=== PATIENT | female | born 1985 | race Caucasian/White ===

== ENCOUNTER 2017-01-22 11:28 | Observation (INO) | payer MEDICAID, OTHER ==
[~2017-01-22] VITALS: Ht 167.6 cm; Wt 61.0 kg
[~2017-01-22 11:28] MED LIST: ARIP2TAB2 PO; LORA2TAB; QUET100T4 PO; RISP1TAB45 HOMEINJ; RISP2TAB35 PO; TRIHEXYPHENIDYL; [UNRECOGNIZED DRUG - REMARK]
[2017-01-22] MEDS ORDERED: LORazepam 1MG TABLET ONE ×2 (11:47→14:26)
[2017-01-22 11:58] LABS: DAU SCREEN DISCLAIMER
[2017-01-22] MEDS ORDERED: LORazepam 1MG TABLET PO ONE (12:00)
[2017-01-22] MEDS ORDERED: PLEASE ENTER ALLERGIES MC SCH ×2 (12:00)
[2017-01-22] MEDS ORDERED: PLEASE ENTER HEIGHT AND WEIGHT MC SCH (12:00)
[2017-01-22 12:01] LABS: HEMATOCRIT 42.5 % (34.6-47.8); HEMOGLOBIN 14.3 g/dL (11.7-16.4); WHITE BLOOD COUNT 9.4 x10^3/uL (3.4-10)
[2017-01-22 12:12] LABS: ASPARTATE AMINO TRANSFERASE 50 U/L (15-37); BLOOD UREA NITROGEN 20 mg/dL (7-18)
[2017-01-22 12:19] LABS: ACETAMINOPHEN < 2 mcg/mL (10-30)
[2017-01-22] MEDS ORDERED: ENOXAPARIN 40 MG/0.4 ML SQ SCH (13:00)
[2017-01-22] MEDS ORDERED: ONDANSETRON ODT 4 MG PO PRN (13:00)
[2017-01-22] MEDS ORDERED: ACETAMINOPHEN 325 MG TABLET PO PRN (13:00)
[2017-01-22] MEDS ORDERED: POLYETHYLENE GLYCOL 17 GM PACKET PO PRN (13:00)
[2017-01-22] MEDS ORDERED: LORazepam 2 MG/ML, 1ML IM PRN (13:00)
[2017-01-22] MEDS ORDERED: NICOTINE 21 MG/24 HR PATCH.TD24 ONE (13:29)
[2017-01-22] MEDS ORDERED: ENOXAPARIN 40 MG/0.4 ML ONE (13:29)
[2017-01-22] MEDS: NICOTINE 21 MG/24 HR PATCH.TD24 TD SCH (13:47)
[2017-01-22] MEDS ORDERED: LORazepam 2 MG/ML, 1ML IVPush ONE (14:30)
[2017-01-22 14:51] VITALS: BP 141/80
[2017-01-22] MEDS ORDERED: ZIPRASIDONE 20 MG INJ IM ONE (15:00)
[2017-01-22 19:29] VITALS: BP 116/80
[2017-01-22] MEDS: LORazepam 1MG TABLET PO PRN (21:18)
[2017-01-23 08:09] VITALS: BP 103/68
[2017-01-23] MEDS: LORazepam 1MG TABLET PO PRN ×2 (09:01→17:01)
[2017-01-23] MEDS: NICOTINE 21 MG/24 HR PATCH.TD24 TD SCH (16:00)
[2017-01-23] MEDS: ENOXAPARIN 40 MG/0.4 ML SQ SCH (16:13)
[2017-01-23 19:03] VITALS: BP 100/61
[2017-01-24 08:00] VITALS: BP 92/61
[2017-01-24] MEDS: LORazepam 1MG TABLET PO PRN (09:41)
[2017-01-24] MEDS: RISPERIDONE 2 MG TABLET PO SCH ×2 (11:28→23:00)
[2017-01-24] MEDS: NICOTINE 21 MG/24 HR PATCH.TD24 TD SCH (16:00)
[2017-01-24] MEDS: ENOXAPARIN 40 MG/0.4 ML SQ SCH (16:27)
[2017-01-24 19:30] VITALS: BP 99/54
[2017-01-25 07:08] VITALS: BP 99/60
[2017-01-25] MEDS: RISPERIDONE 2 MG TABLET PO SCH ×2 (08:40→20:59)
[2017-01-25] MEDS: LORazepam 1MG TABLET PO PRN (11:36)
[2017-01-25] MEDS: ENOXAPARIN 40 MG/0.4 ML SQ SCH (16:00)
[2017-01-25] MEDS: NICOTINE 21 MG/24 HR PATCH.TD24 TD SCH (17:28)
[2017-01-25 19:43] VITALS: BP 94/59
[2017-01-26 08:20] VITALS: BP 94/55
[2017-01-26] MEDS: RISPERIDONE 2 MG TABLET PO SCH ×2 (08:39→20:16)
[2017-01-26] MEDS: NICOTINE 21 MG/24 HR PATCH.TD24 TD SCH (16:00)
[2017-01-26] MEDS: ENOXAPARIN 40 MG/0.4 ML SQ SCH (16:00)
[2017-01-26 19:35] VITALS: BP 107/60
== END 2017-01-27 00:09 ==
LOC: ED 12:22 → EDIP 12:27 → SUATTDRO 12:51 → ED 13:15 → 3E 14:33
PROVIDERS: ADMIT Internal Medicine; ATTEND Internal Medicine
DX: T14.91 Suicide attempt (principal); D69.6 Thrombocytopenia, unspecified; E10.9 Type 1 diabetes mellitus without complications; F15.20 Other stimulant dependence, uncomplicated; F23 Brief psychotic disorder; F25.9 Schizoaffective disorder, unspecified; F31.9 Bipolar disorder, unspecified; F17.200 Nicotine dependence, unspecified, uncomplicated; I11.0 Hypertensive heart disease with heart failure; I25.2 Old myocardial infarction; I25.10 Atherosclerotic heart disease of native coronary artery without angina pectoris; I50.9 Heart failure, unspecified; J44.9 Chronic obstructive pulmonary disease, unspecified; Z79.4 Long term (current) use of insulin; Z91.14 Patient's other noncompliance with medication regimen; Y92.89 Other specified places as the place of occurrence of the external cause; Y93.89 Activity, other specified; Y99.8 Other external cause status
CPT/HCPCS: 36415; 80053; 80307; 80329; 84703; 85025; 96372; 99285; G0378; J1650; J2060; J3486; G0479; G0480

== ENCOUNTER 2017-04-18 14:55 | Emergency (ER) | payer SELFPAY ==
[~2017-04-18] VITALS: Ht 175.3 cm; Wt 71.9 kg
[~2017-04-18 14:55] MED LIST changes: +CLON-364 PO; +LORA-446 PO
[2017-04-18 15:09] VITALS: BP 92/55
[2017-04-18] MEDS ORDERED: IBUPROFEN 200 MG TABLET ONE (15:31)
[2017-04-18] MEDS ORDERED: IBUPROFEN 200 MG TABLET PO ONE (16:00)
== END 2017-04-18 15:44 | disposition home or self-care (01) ==
LOC: ED 15:15
DX: M25.572 Pain in left ankle and joints of left foot (principal); M25.571 Pain in right ankle and joints of right foot; M79.672 Pain in left foot; M79.671 Pain in right foot; F15.10 Other stimulant abuse, uncomplicated; F17.210 Nicotine dependence, cigarettes, uncomplicated
CPT/HCPCS: 99282

== ENCOUNTER 2017-04-19 09:15 | Emergency (ER) | payer MEDICAID ==
[~2017-04-19] VITALS: Ht 175.3 cm; Wt 75.0 kg
[2017-04-19 12:30] VITALS: BP 104/57
== END 2017-04-19 12:32 | disposition home or self-care (01) ==
LOC: ED 09:37
DX: F20.3 Undifferentiated schizophrenia (principal); F31.9 Bipolar disorder, unspecified
CPT/HCPCS: 82962; 99284

== ENCOUNTER 2017-08-04 08:37 | Emergency (ER) | payer MEDICAID ==
[~2017-08-04] VITALS: Ht 175.3 cm; Wt 67.7 kg
[2017-08-04 08:39] VITALS: BP 134/81
== END 2017-08-04 10:51 | disposition left against medical advice (07) ==
LOC: ED 10:45
DX: Z53.21 Procedure and treatment not carried out due to patient leaving prior to being seen by health care provider (principal)

== ENCOUNTER 2017-11-13 01:32 | Emergency (ER) | payer MEDICAID, OTHER ==
[~2017-11-13] VITALS: Ht 165.1 cm; Wt 60.0 kg
[2017-11-13] MEDS ORDERED: ZIPRASIDONE 20 MG INJ IM ONE ×2 (01:58→02:00)
[2017-11-13 02:12] LABS: BASOPHILS # (AUTO) 0.03 x10^3/uL (0-0.1); BASOPHILS % (AUTO) 0 % (0-1); EOSINOPHILS # (AUTO) 0.23 x10^3/uL (0-0.4); EOSINOPHILS % (AUTO) 2 % (1-7); LYMPHOCYTES % (AUTO) 20 % (22-44); MD NO; MEAN CORPUSCULAR HEMOGLOBIN 29.9 pg (27.0-34.8); MEAN CORPUSCULAR HGB CONC 33.3 g/dL (32.4-35.8); MEAN CORPUSCULAR VOLUME 89.8 fL (80-100); MONOCYTES # (AUTO) 1.01 x10^3/uL (0.2-0.8); MONOCYTES % (AUTO) 10 % (2-9); NEUTROPHILS # (AUTO) 7.24 x10^3/uL (1.8-6.8); NEUTROPHILS % (AUTO) 68 % (42-75); PLATELET COUNT 144 x10^3/uL (130-400); RED BLOOD COUNT 4.81 x10^6/uL (3.82-5.3); RED CELL DISTRIBUTION WIDTH 13.2 % (9.6-15.2)
[2017-11-13 02:19] LABS: ALANINE AMINOTRANSFERASE 22 U/L (12-78); ALBUMIN 3.6 g/dL (3.4-5.0); ANION GAP 6 mmol/L (5-15); CALCIUM 8.8 mg/dL (8.5-10.1); CHLORIDE 110 mmol/L (98-107); CREATININE 0.93 mg/dL (0.55-1.02)
[2017-11-13 02:24] LABS: ALKALINE PHOSPHATASE 68 U/L (45-117); BILIRUBIN,TOTAL 0.3 mg/dL (0.2-1.0); TOTAL PROTEIN 7.3 g/dL (6.4-8.2)
[2017-11-13 02:25] LABS: ACETAMINOPHEN < 2 mcg/mL (10-30); SALICYLATE LEVEL < 1.7 mg/dL (2.8-20.0)
[2017-11-13] MEDS ORDERED: DIPHENHYDRAMINE 50 MG/ML, 1ML IM ONE (03:00)
[2017-11-13] MEDS ORDERED: LORazepam 2 MG/ML, 1ML IM ONE (03:00)
[2017-11-13] MEDS ORDERED: HALOPERIDOL 5 MG/ML IM ONE (03:00)
[2017-11-13] MEDS ORDERED: DIPHENHYDRAMINE 50 MG/ML, 1ML ONE (03:01)
[2017-11-13] MEDS ORDERED: HALOPERIDOL 5 MG/ML ONE (03:01)
[2017-11-13] MEDS ORDERED: LORazepam 2 MG/ML, 1ML ONE (03:02)
[2017-11-13] MEDS ORDERED: PLEASE ENTER HEIGHT AND WEIGHT MC SCH (03:30)
[2017-11-13] MEDS ORDERED: LORazepam 1MG TABLET PO PRN (11:00)
[2017-11-13] MEDS ORDERED: POLYETHYLENE GLYCOL 17 GM PACKET PO PRN (11:00)
[2017-11-13] MEDS ORDERED: ONDANSETRON ODT 4 MG PO PRN (11:00)
[2017-11-13 11:19] VITALS: BP 98/78
[2017-11-13 11:25] LABS: FREE T4 (FREE THYROXINE) 1.16 ng/dL (0.76-1.46)
[2017-11-13 14:02] LABS: AMPHETAMINE SCREEN, URINE Positive (Negative); BARBITURATE SCREEN, URINE Negative (Negative); BENZODIAZEPINE SCREEN, URINE Negative (Negative); CANNABINOID SCREEN, URINE Positive (Negative); COCAINE SCREEN, URINE Negative (Negative); METHADONE SCREEN, URINE Negative (Negative); OPIATE SCREEN, URINE Negative (Negative)
[2017-11-14] MEDS ORDERED: SENNA/DOCUSATE TABLET PO SCH (09:00)
== END 2017-11-13 15:21 | disposition home or self-care (01) ==
LOC: MERGE 04:59 → ED 04:59 → EDBD 04:59 → UNDOADMOB 06:49 → EDIP 06:49
DX: F20.0 Paranoid schizophrenia (principal); F13.151 Sedative, hypnotic or anxiolytic abuse with sedative, hypnotic or anxiolytic-induced psychotic disorder with hallucinations; F13.1 Sedative, hypnotic or anxiolytic-related abuse; F17.200 Nicotine dependence, unspecified, uncomplicated
CPT/HCPCS: 36415; 80053; 80307; 80329; 84439; 84443; 84703; 85025; 96372; 99291; J1200; J1630; J2060; J3486; G0480

== ENCOUNTER 2020-04-08 04:16 | Emergency (ER) | payer MEDICAID, OTHER ==
[2020-04-08 04:28] VITALS: BP 92/66
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
--- NOTE | 2020-04-08 06:40 | NUR ---
PT SLEEPING. EQUAL RISE OF CHEST WALL. SITTER AT BEDSIDE. ROOM SECURE.
--- NOTE | 2020-04-08 07:04 | NUR ---
REPORT RECEIVED FROM ROCIO WILLIAMSON
--- NOTE | 2020-04-08 07:28 | NUR ---
PT REC'VD DISCHARGE INSTRUCTIONS AND EDUCATION. PT HAD NO QUESTIONS. PT GIVEN RESOURCE HANDOUT FOR MENTAL HEALTH. PT AMBULATED TO DC DESK, STEADY GAIT.
== END 2020-04-08 07:31 | disposition home or self-care (01) ==
LOC: ED 06:13
DX: F33.9 Major depressive disorder, recurrent, unspecified (principal); F39 Unspecified mood [affective] disorder; Z59.0 Homelessness
CPT/HCPCS: 99283

== ENCOUNTER 2020-04-09 04:42 | Emergency (ER) | payer MEDICAID ==
[~2020-04-09] VITALS: Ht 175.3 cm; Wt 95.6 kg
[2020-04-09 04:45] VITALS: BP 107/60
--- NOTE | 2020-04-09 05:19 | NUR ---
PT AMB TO ROOM FROM [facility] W/ XIMENA GAIT
--- NOTE | 2020-04-09 05:26 | NUR ---
KIMEBRLY AT BEDSIDE TO ASSESS PT AND DISCUSS POC
[2020-04-09] MEDS ORDERED: ACETAMINOPHEN 325 MG TABLET PO ONE (05:30)
[2020-04-09] MEDS ORDERED: ACETAMINOPHEN 325 MG TABLET ONE (05:35)
--- NOTE | 2020-04-09 05:40 | NUR ---
PT MEDICATED PER MAR
--- NOTE | 2020-04-09 05:57 | NUR ---
PT SLEEPING ON GURNEY NO NEEDS AT THIS TIME
--- NOTE | 2020-04-09 06:15 | NUR ---
Patient/Caregiver given discharge instructions and they have confirmed that they understand the instructions. Patient ambulatory with steady gait.
== END 2020-04-09 06:16 | disposition home or self-care (01) ==
LOC: ED 05:39
DX: S00.83XA Contusion of other part of head, initial encounter (principal); F20.9 Schizophrenia, unspecified; F17.290 Nicotine dependence, other tobacco product, uncomplicated; Z59.0 Homelessness; X58.XXXA Exposure to other specified factors, initial encounter; Y93.89 Activity, other specified; Y92.488 Other paved roadways as the place of occurrence of the external cause; Y99.8 Other external cause status
CPT/HCPCS: 99282

== ENCOUNTER 2020-06-06 07:53 | Emergency (ER) | payer MEDICAID ==
[~2020-06-06] VITALS: Ht 175.3 cm; Wt 80.0 kg
--- NOTE | 2020-06-06 08:17 | NUR ---
Pt immediately to decon shower.
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
--- NOTE | 2020-06-06 08:51 | NUR ---
pt resting, left side lying, on SPO2 monitor. even respiratory rate and effort.
[2020-06-06] MEDS ORDERED: CEFTRIAXONE 1,000 MG IM ONE (09:30)
--- NOTE | 2020-06-06 09:31 | NUR ---
Pt left side lying, even resp rate and effort.
--- NOTE | 2020-06-06 10:31 | NUR ---
pt left side lying, resting with eyesclosed. even resp rate and effort.
--- NOTE | 2020-06-06 11:16 | NUR ---
pt resting, supine, eyes closed, even respiratory rate and effort.
[2020-06-06] MEDS ORDERED: CEFTRIAXONE 1,000 MG ONE (11:35)
[2020-06-06 12:11] VITALS: BP 128/86
== END 2020-06-06 12:28 | disposition home or self-care (01) ==
LOC: ED 08:47
DX: L03.031 Cellulitis of right toe (principal); F20.9 Schizophrenia, unspecified; Z91.19 Patient's noncompliance with other medical treatment and regimen; Z59.0 Homelessness
CPT/HCPCS: 96372; 99283; J0696

== ENCOUNTER 2020-06-08 17:23 | Emergency (ER) | payer MEDICAID ==
[~2020-06-08] VITALS: Ht 172.7 cm; Wt 100.0 kg
--- NOTE | 2020-06-08 18:49 | NUR ---
FOOD TRAY PROVIDED.
[2020-06-08 19:08] VITALS: BP 126/71
== END 2020-06-08 20:06 | disposition home or self-care (01) ==
LOC: ED 18:24
DX: Z00.00 Encounter for general adult medical examination without abnormal findings (principal); Z59.0 Homelessness
CPT/HCPCS: 99283

== ENCOUNTER 2020-06-11 14:20 | Emergency (ER) | payer MEDICAID ==
[~2020-06-11] VITALS: Ht 175.3 cm; Wt 87.5 kg
--- NOTE | 2020-06-11 14:40 | NUR ---
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 pt is alert and riented. she is aware that she is in [place] and tta she is in the hospital. pt states that she is homeless and that she has no family in the area pt undressed and placed in hospital gown. belongings secured. room secured pt updated on POC
--- NOTE | 2020-06-11 14:45 | NUR ---
lab has been to bedside to draw. pt aware of legal hold status and verbalized understanding. lab has bene to bedside to draw tech at bedside to escort p to BR for urine sample
--- NOTE | 2020-06-11 14:52 | NUR ---
Dr. Rivero has been to bedside for eval. legal hold to be D/C.
--- NOTE | 2020-06-11 15:00 | NUR ---
meal tray has been ordered. pt resting in posiiton of comfort on gurmidkiff. no apparent distress
--- NOTE | 2020-06-11 15:00 | NUR ---
Note undone in ED - 06/11/20 at 1529 by GAEL meal tray has been ordered. faiza Mcwilliams APRN at bedside for eval Addendum: 06/11/20 at 1527 by GAEL Amendment undone in ED - 06/11/20 at 1529 by GAEL meal tray ordered. pt resting on gurney in posiiton of comfort
[2020-06-11 15:17] LABS: ALANINE AMINOTRANSFERASE 19 U/L (12-78); ALBUMIN 2.9 g/dL (3.4-5.0); ANION GAP 4 mmol/L (5-15); CALCIUM 8.6 mg/dL (8.5-10.1); CHLORIDE 112 mmol/L (98-107); CREATININE 0.62 mg/dL (0.55-1.02); SALICYLATE LEVEL < 1.7 mg/dL (2.8-20.0)
[2020-06-11 15:19] LABS: ALKALINE PHOSPHATASE 54 U/L (45-117); BASOPHILS % (AUTO) 1 % (0-1); BILIRUBIN,TOTAL 0.3 mg/dL (0.2-1.0); EOSINOPHILS % (AUTO) 3 % (1-7); LYMPHOCYTES % (AUTO) 49 % (22-44); MEAN CORPUSCULAR HEMOGLOBIN 29.1 pg (27.0-34.8); MEAN CORPUSCULAR HGB CONC 33.1 g/dL (32.4-35.8); MEAN PLATELET VOLUME 8.6 fL (7.4-10.4); MONOCYTES % (AUTO) 9 % (2-9); NEUTROPHILS % (AUTO) 38 % (42-75); PLATELET COUNT 162 x10^3/uL (130-400); RED BLOOD COUNT 4.73 x10^6/uL (3.82-5.3); RED CELL DISTRIBUTION WIDTH 14.1 % (9.6-15.2); TOTAL PROTEIN 6.2 g/dL (6.4-8.2)
[2020-06-11 15:21] LABS: MD NO
--- NOTE | 2020-06-11 15:28 | NUR ---
meal tray delivered
[2020-06-11 15:32] LABS: AMPHETAMINE SCREEN, URINE Positive (Negative); BARBITURATE SCREEN, URINE Negative (Negative); BENZODIAZEPINE SCREEN, URINE Negative (Negative); CANNABINOID SCREEN, URINE Negative (Negative); COCAINE SCREEN, URINE Negative (Negative); METHADONE SCREEN, URINE Negative (Negative); OPIATE SCREEN, URINE Negative (Negative)
--- NOTE | 2020-06-11 15:54 | NUR ---
pt sleeping. no apparent distress
[2020-06-11 17:21] VITALS: BP 110/70
== END 2020-06-11 17:25 | disposition home or self-care (01) ==
LOC: ED 14:39
DX: Z00.00 Encounter for general adult medical examination without abnormal findings (principal)
CPT/HCPCS: 36415; 80053; 80299; 80307; 80320; 80329; 85025; 99283; G0480

== ENCOUNTER 2020-07-25 07:28 | Emergency (ER) | payer MEDICAID ==
[~2020-07-25] VITALS: Ht 170.2 cm; Wt 70.0 kg
[2020-07-25 07:37] VITALS: BP 112/74
--- NOTE | 2020-07-25 07:38 | NUR ---
PT BIB EMS FOR PSYCH. SHIZOPHRENIA, HEARING VOICES. WALKING AROUND W OUT SHOES. DENIES SI/SA. WILL GET PT NEW SOCKS AND SHOES.
[2020-07-25] MEDS ORDERED: IBUPROFEN 200 MG TABLET ONE (07:42)
--- NOTE | 2020-07-25 07:49 | NUR ---
PROVIDED SLIPPERS AND SOCKS
[2020-07-25] MEDS ORDERED: IBUPROFEN 200 MG TABLET PO ONE (08:00)
== END 2020-07-25 08:22 | disposition home or self-care (01) ==
LOC: ED 07:50
DX: S90.32XA Contusion of left foot, initial encounter (principal); S90.31XA Contusion of right foot, initial encounter; F20.9 Schizophrenia, unspecified; F17.290 Nicotine dependence, other tobacco product, uncomplicated; Z72.9 Problem related to lifestyle, unspecified; X58.XXXA Exposure to other specified factors, initial encounter; Y93.89 Activity, other specified; Y92.89 Other specified places as the place of occurrence of the external cause; Y99.8 Other external cause status
CPT/HCPCS: 99282; 99283

== ENCOUNTER 2020-07-27 19:19 | Inpatient (IN) | payer MEDICAID ==
[~2020-07-27] VITALS: Ht 175.3 cm; Wt 79.3 kg
[2020-07-27] MEDS ORDERED: ACETAMINOPHEN 325 MG TABLET PO PRN (20:00)
[2020-07-27] MEDS ORDERED: ONDANSETRON ODT 4 MG PO PRN (20:00)
[2020-07-27 22:05] VITALS: BP 107/74
[2020-07-27 22:36] VITALS: BP 107/74
[2020-07-28 06:13] LABS: FREE T4 (FREE THYROXINE) 1.08 ng/dL (0.76-1.46); LDL/HDL RATIO 0.7 (0.5-3.0)
[2020-07-28 08:06] VITALS: BP 107/72
[2020-07-28] MEDS ORDERED: NICOTINE 14MG/24 HR PATCH.TD24 TD ONE (09:00)
[2020-07-28] MEDS: LORazepam 1MG TABLET PO PRN (09:50)
[2020-07-28] MEDS: HALOPERIDOL 5 MG TABLET PO PRN (09:51)
[2020-07-28 20:20] VITALS: BP 106/69
[2020-07-28] MEDS: RISPERIDONE 1 MG TABLET PO SCH (21:54)
[2020-07-29 06:19] LABS: MICROSCOPIC INDICATED
[2020-07-29 06:45] LABS: AMPHETAMINE SCREEN, URINE Positive (Negative); BARBITURATE SCREEN, URINE Negative (Negative); BENZODIAZEPINE SCREEN, URINE Negative (Negative); CANNABINOID SCREEN, URINE Negative (Negative); COCAINE SCREEN, URINE Negative (Negative); METHADONE SCREEN, URINE Negative (Negative); OPIATE SCREEN, URINE Negative (Negative)
[2020-07-29 08:11] VITALS: BP 93/60
[2020-07-29 08:27] VITALS: BP 111/74
[2020-07-29] MEDS: RISPERIDONE 1 MG TABLET PO SCH (08:28)
[2020-07-29] MEDS: LORazepam 1MG TABLET PO PRN (14:28)
[2020-07-30] MEDS: RISPERIDONE 1 MG TABLET PO SCH ×3 (00:16→21:29)
[2020-07-30 07:35] VITALS: BP 96/61
[2020-07-30] MEDS ORDERED: RISP1TAB90 PO (16:47)
[2020-07-30 19:20] VITALS: BP 114/74
[2020-07-30] MEDS: HALOPERIDOL 5 MG TABLET PO PRN (21:41)
[2020-07-31 07:42] VITALS: BP 105/66
[2020-07-31] MEDS: RISPERIDONE 1 MG TABLET PO SCH (08:55)
== END 2020-07-31 09:45 | disposition home or self-care (01) | DRG 750 ==
LOC: 3E 21:35
PROVIDERS: ADMIT Psychiatry & Neurology Psychosomatic Medicine; ATTEND Psychiatry & Neurology Psychosomatic Medicine
DX: F25.0 Schizoaffective disorder, bipolar type (principal); R62.7 Adult failure to thrive; F17.200 Nicotine dependence, unspecified, uncomplicated; Z79.899 Other long term (current) drug therapy
CPT/HCPCS: 36415; 80061; 80307; 81001; 82607; 84439; 84443; 84703; 87086

== ENCOUNTER 2020-08-03 01:35 | Emergency (ER) | payer MEDICAID ==
[~2020-08-03] VITALS: Ht 170.2 cm; Wt 78.5 kg
[~2020-08-03 01:35] MED LIST changes: +RISP1TAB90 PO
--- NOTE | 2020-08-03 01:42 | NUR ---
pt states she was transferred to [facility] from [facility] but unsure why. pt walked from [facility] to [facility] er, denies medical complaint. Pt left from Triage as she stated she didnt need to see a doctor.
== END 2020-08-03 01:45 | disposition left against medical advice (07) ==
LOC: ED 01:39
DX: Z53.21 Procedure and treatment not carried out due to patient leaving prior to being seen by health care provider (principal)

== ENCOUNTER 2020-08-19 15:58 | Inpatient (IN) | payer MEDICAID ==
[~2020-08-19] VITALS: Ht 175.3 cm; Wt 76.6 kg
[2020-08-19] MEDS ORDERED: ACETAMINOPHEN 325 MG TABLET PO PRN (16:30)
[2020-08-19] MEDS ORDERED: POLYETHYLENE GLYCOL 17 GM PACKET PO PRN (16:30)
[2020-08-19] MEDS ORDERED: DOCUSATE 100 MG CAPSULE PO PRN (16:30)
[2020-08-19] MEDS ORDERED: ONDANSETRON ODT 4 MG PO PRN (16:30)
[2020-08-19 17:16] VITALS: BP 98/66
[2020-08-19] MEDS ORDERED: PLEASE ENTER HEIGHT AND WEIGHT MC SCH (17:30)
[2020-08-19 20:00] VITALS: BP 106/69
[2020-08-19] MEDS ORDERED: OLAN5TAB69 PO (23:00)
[2020-08-20 01:27] LABS: MICROSCOPIC NOT IND
[2020-08-20 07:39] VITALS: BP 105/64
[2020-08-20] MEDS: LORazepam 1MG TABLET PO PRN ×2 (09:59→15:38)
[2020-08-20] MEDS: HALOPERIDOL 5 MG TABLET PO PRN ×2 (09:59→15:38)
[2020-08-20 11:29] LABS: BASOPHILS % (AUTO) 0 % (0-1); EOSINOPHILS % (AUTO) 1 % (1-7); LYMPHOCYTES % (AUTO) 37 % (22-44); MEAN CORPUSCULAR HEMOGLOBIN 29.2 pg (27.0-34.8); MEAN CORPUSCULAR HGB CONC 32.3 g/dL (32.4-35.8); MEAN PLATELET VOLUME 8.6 fL (7.4-10.4); MONOCYTES % (AUTO) 12 % (2-9); NEUTROPHILS % (AUTO) 50 % (42-75); PLATELET COUNT 151 x10^3/uL (130-400); RED BLOOD COUNT 5.12 x10^6/uL (3.82-5.3); RED CELL DISTRIBUTION WIDTH 13.9 % (9.6-15.2)
[2020-08-20 11:40] LABS: ALBUMIN 3.3 g/dL (3.4-5.0); CALCIUM 9.4 mg/dL (8.5-10.1); CHLORIDE 108 mmol/L (98-107)
[2020-08-20 11:48] LABS: ANION GAP 3 mmol/L (5-15)
[2020-08-20 11:52] LABS: ALANINE AMINOTRANSFERASE 20 U/L (12-78); ALKALINE PHOSPHATASE 51 U/L (45-117); BILIRUBIN,TOTAL 0.3 mg/dL (0.2-1.0); CREATININE 0.74 mg/dL (0.55-1.02); TOTAL PROTEIN 6.7 g/dL (6.4-8.2)
[2020-08-20 12:11] LABS: FREE T4 (FREE THYROXINE) 0.97 ng/dL (0.76-1.46)
[2020-08-20] MEDS: RISPERIDONE 1 MG TABLET PO SCH ×2 (15:38→20:18)
[2020-08-20] MEDS: BENZTROPINE 1 MG TABLET PO SCH (20:18)
[2020-08-21 07:23] VITALS: BP 95/60
[2020-08-21] MEDS: LORazepam 1MG TABLET PO PRN ×2 (07:48→20:19)
[2020-08-21] MEDS: RISPERIDONE 1 MG TABLET PO SCH ×2 (07:48→20:19)
[2020-08-21] MEDS: HALOPERIDOL 5 MG TABLET PO PRN ×2 (07:48→20:19)
[2020-08-21] MEDS: SERTRALINE 50MG TABLET PO SCH (07:48)
[2020-08-21 19:06] VITALS: BP 99/63
[2020-08-21] MEDS: BENZTROPINE 1 MG TABLET PO SCH (20:19)
[2020-08-22 07:36] VITALS: BP 100/62
[2020-08-22] MEDS: SERTRALINE 50MG TABLET PO SCH (07:48)
[2020-08-22] MEDS: RISPERIDONE 1 MG TABLET PO SCH ×2 (07:48→20:04)
[2020-08-22 19:58] VITALS: BP 108/75
[2020-08-22] MEDS: LORazepam 1MG TABLET PO PRN (20:04)
[2020-08-22] MEDS: BENZTROPINE 1 MG TABLET PO SCH (20:04)
[2020-08-22] MEDS: HALOPERIDOL 5 MG TABLET PO PRN (20:05)
[2020-08-23 05:58] VITALS: BP 140/80
[2020-08-23] MEDS: SERTRALINE 50MG TABLET PO SCH (08:05)
[2020-08-23] MEDS: RISPERIDONE 1 MG TABLET PO SCH ×2 (08:05→19:59)
[2020-08-23 19:33] VITALS: BP 102/61
[2020-08-23] MEDS: BENZTROPINE 1 MG TABLET PO SCH (19:59)
[2020-08-24 07:44] VITALS: BP 92/58
[2020-08-24] MEDS: SERTRALINE 50MG TABLET PO SCH (07:59)
[2020-08-24] MEDS: RISPERIDONE 1 MG TABLET PO SCH (07:59)
[2020-08-24] MEDS ORDERED: RISP1TAB90 PO (13:11)
[2020-08-24] MEDS ORDERED: BENZ1TAB61 PO (13:11)
[2020-08-24] MEDS ORDERED: SERT50TA28 PO (13:11)
== END 2020-08-24 13:47 | disposition home or self-care (01) | DRG 750 ==
LOC: 3E 17:01
PROVIDERS: ADMIT Psychiatry & Neurology Psychosomatic Medicine; ATTEND Psychiatry & Neurology Psychosomatic Medicine
DX: F25.0 Schizoaffective disorder, bipolar type (principal); R45.851 Suicidal ideations; F15.20 Other stimulant dependence, uncomplicated; Z59.0 Homelessness; F17.210 Nicotine dependence, cigarettes, uncomplicated; Z79.899 Other long term (current) drug therapy
CPT/HCPCS: 36415; 80053; 81003; 84439; 84443; 84481; 85025; 93005

== ENCOUNTER 2020-08-31 03:57 | Inpatient (IN) | payer MEDICAID ==
[~2020-08-31] VITALS: Ht 175.3 cm; Wt 76.7 kg
[~2020-08-31 03:57] MED LIST changes: +BENZ1TAB61 PO; +OLAN5TAB9 PO; +SERT50TA28 PO
[2020-08-31] MEDS ORDERED: ONDANSETRON ODT 4 MG PO PRN (04:30)
[2020-08-31] MEDS ORDERED: DOCUSATE 100 MG CAPSULE PO PRN (04:30)
[2020-08-31] MEDS ORDERED: ACETAMINOPHEN 325 MG TABLET PO PRN (04:30)
[2020-08-31] MEDS ORDERED: RISP2TAB35 PO (04:53)
[2020-08-31] MEDS ORDERED: HALOPERIDOL 2 MG TABLET PO PRN (05:00)
[2020-08-31] MEDS: PLEASE ENTER HEIGHT AND WEIGHT MC SCH ×3 (05:30→20:39)
[2020-08-31] MEDS ORDERED: HALOPERIDOL 5 MG TABLET PO PRN (06:00)
[2020-08-31 07:39] VITALS: BP 103/67
[2020-08-31 08:50] LABS: FREE T4 (FREE THYROXINE) 1.16 ng/dL (0.76-1.46)
[2020-08-31] MEDS: SERTRALINE 50MG TABLET PO SCH (09:33)
[2020-08-31] MEDS: RISPERIDONE 1 MG TABLET PO SCH ×2 (09:33→20:37)
[2020-08-31 19:28] VITALS: BP 118/72
[2020-08-31] MEDS: BENZTROPINE 1 MG TABLET PO SCH (20:36)
[2020-09-01 07:48] VITALS: BP 109/62
[2020-09-01] MEDS: SERTRALINE 50MG TABLET PO SCH (08:38)
[2020-09-01] MEDS: RISPERIDONE 1 MG TABLET PO SCH ×2 (08:38→20:43)
[2020-09-01 13:15] LABS: MICROSCOPIC NOT IND
[2020-09-01 19:30] VITALS: BP 114/80
[2020-09-01] MEDS: BENZTROPINE 1 MG TABLET PO SCH (20:43)
[2020-09-02 07:05] VITALS: BP 92/54
[2020-09-02] MEDS: SERTRALINE 50MG TABLET PO SCH (08:02)
[2020-09-02] MEDS: RISPERIDONE 1 MG TABLET PO SCH ×2 (08:02→20:13)
[2020-09-02] MEDS: LORazepam 1MG TABLET PO PRN ×2 (08:02→20:13)
[2020-09-02 19:36] VITALS: BP 104/59
[2020-09-02] MEDS: BENZTROPINE 1 MG TABLET PO SCH (20:14)
[2020-09-02 20:15] VITALS: BP 110/62
[2020-09-03 07:44] VITALS: BP 106/67
[2020-09-03] MEDS: SERTRALINE 50MG TABLET PO SCH (08:34)
[2020-09-03] MEDS: RISPERIDONE 1 MG TABLET PO SCH ×2 (08:34→20:24)
[2020-09-03 19:28] VITALS: BP 100/66
[2020-09-03] MEDS: BENZTROPINE 1 MG TABLET PO SCH (20:24)
[2020-09-04 07:21] VITALS: BP 96/61
[2020-09-04] MEDS: RISPERIDONE 1 MG TABLET PO SCH ×2 (09:33→20:31)
[2020-09-04] MEDS: SERTRALINE 50MG TABLET PO SCH (09:33)
[2020-09-04] MEDS: LORazepam 1MG TABLET PO PRN (10:37)
[2020-09-04 18:40] VITALS: BP 99/60
[2020-09-04] MEDS: BENZTROPINE 1 MG TABLET PO SCH (20:31)
[2020-09-05 06:32] VITALS: BP 110/70
[2020-09-05] MEDS: SERTRALINE 50MG TABLET PO SCH (08:04)
[2020-09-05] MEDS: RISPERIDONE 1 MG TABLET PO SCH (08:04)
[2020-09-05] MEDS ORDERED: BENZ1TAB61 PO (14:26)
[2020-09-05] MEDS ORDERED: RISP1TAB90 PO (14:26)
[2020-09-05] MEDS ORDERED: SERT50TA28 PO (14:26)
== END 2020-09-05 14:45 | disposition home or self-care (01) | DRG 750 ==
LOC: 3E 05:15
PROVIDERS: ADMIT Psychiatry & Neurology Psychosomatic Medicine; ATTEND Psychiatry & Neurology Psychosomatic Medicine
DX: F25.0 Schizoaffective disorder, bipolar type (principal); F15.20 Other stimulant dependence, uncomplicated; F17.210 Nicotine dependence, cigarettes, uncomplicated; Z79.899 Other long term (current) drug therapy; Z91.19 Patient's noncompliance with other medical treatment and regimen; Z71.6 Tobacco abuse counseling
CPT/HCPCS: 36415; 81003; 82607; 84439; 84443; 93005

== ENCOUNTER 2020-11-12 18:14 | Inpatient (IN) | payer MEDICAID ==
[~2020-11-12] VITALS: Ht 175.3 cm; Wt 73.6 kg
[2020-11-12] MEDS ORDERED: BISACODYL 10 MG SUPP PR PRN (19:30)
[2020-11-12] MEDS ORDERED: ACETAMINOPHEN 325 MG TABLET PO PRN (19:30)
[2020-11-12] MEDS ORDERED: POLYETHYLENE GLYCOL 17 GM PACKET PO PRN (19:30)
[2020-11-12] MEDS ORDERED: ONDANSETRON ODT 4 MG PO PRN (19:30)
[2020-11-12] MEDS ORDERED: DOCUSATE 100 MG CAPSULE PO PRN (19:30)
[2020-11-12] MEDS ORDERED: PLEASE ENTER HEIGHT AND WEIGHT MC SCH (21:00)
[2020-11-12 21:46] LABS: BASOPHILS % (AUTO) 1 % (0-1); EOSINOPHILS % (AUTO) 3 % (1-7); LYMPHOCYTES % (AUTO) 41 % (22-44); MEAN CORPUSCULAR HEMOGLOBIN 30.1 pg (27.0-34.8); MEAN CORPUSCULAR HGB CONC 33.7 g/dL (32.4-35.8); MEAN PLATELET VOLUME 8.1 fL (7.4-10.4); MONOCYTES % (AUTO) 9 % (2-9); NEUTROPHILS % (AUTO) 47 % (42-75); PLATELET COUNT 169 x10^3/uL (130-400); RED BLOOD COUNT 4.89 x10^6/uL (3.82-5.3); RED CELL DISTRIBUTION WIDTH 13.1 % (9.6-15.2)
[2020-11-12 21:58] LABS: ALANINE AMINOTRANSFERASE 20 U/L (12-78); ALBUMIN 3.1 g/dL (3.4-5.0); ANION GAP 7 mmol/L (5-15); CALCIUM 9.1 mg/dL (8.5-10.1); CHLORIDE 104 mmol/L (98-107); CREATININE 0.61 mg/dL (0.55-1.02)
[2020-11-12 22:24] LABS: ALKALINE PHOSPHATASE 60 U/L (45-117); BILIRUBIN,TOTAL 0.4 mg/dL (0.2-1.0); TOTAL PROTEIN 6.8 g/dL (6.4-8.2)
[2020-11-12 22:48] VITALS: BP 106/62
[2020-11-13 07:41] VITALS: BP 93/55
[2020-11-13] MEDS: RISPERIDONE 1 MG TABLET PO SCH ×2 (08:27→19:46)
[2020-11-13 08:32] VITALS: BP 103/61
[2020-11-13 08:53] LABS: CHOL/HDL RATIO 2.3; LDL/HDL RATIO 1.1 (0.5-3.0)
[2020-11-13] MEDS: LORazepam 1MG TABLET PO PRN (15:39)
[2020-11-13 19:31] VITALS: BP 107/70
[2020-11-13] MEDS: TRIHEXYPHENIDYL 2MG TABLET PO SCH (19:46)
[2020-11-14 08:14] VITALS: BP 100/76
[2020-11-14] MEDS: TRIHEXYPHENIDYL 2MG TABLET PO SCH ×2 (08:43→20:25)
[2020-11-14] MEDS: RISPERIDONE 1 MG TABLET PO SCH ×2 (08:43→20:25)
[2020-11-14] MEDS: LORazepam 1MG TABLET PO PRN (15:26)
[2020-11-14 19:55] VITALS: BP 100/60
[2020-11-15 07:30] VITALS: BP 98/63
[2020-11-15] MEDS: TRIHEXYPHENIDYL 2MG TABLET PO SCH ×2 (08:39→20:37)
[2020-11-15] MEDS: RISPERIDONE 1 MG TABLET PO SCH ×2 (08:39→20:37)
[2020-11-15] MEDS: LORazepam 1MG TABLET PO PRN (13:11)
[2020-11-15 19:31] VITALS: BP 100/60
[2020-11-16 07:10] VITALS: BP 115/57
[2020-11-16] MEDS: RISPERIDONE 1 MG TABLET PO SCH (09:08)
[2020-11-16] MEDS: TRIHEXYPHENIDYL 2MG TABLET PO SCH (09:08)
[2020-11-16] MEDS ORDERED: TRIH2TAB3 PO (14:11)
[2020-11-16] MEDS ORDERED: RISP1TAB90 PO (14:11)
== END 2020-11-16 15:10 | disposition home or self-care (01) | DRG 885 ==
LOC: 3E 20:45
PROVIDERS: ADMIT Psychiatry & Neurology Psychosomatic Medicine; ATTEND Psychiatry & Neurology Psychosomatic Medicine
DX: F25.0 Schizoaffective disorder, bipolar type (principal); F11.20 Opioid dependence, uncomplicated; F15.20 Other stimulant dependence, uncomplicated; F17.200 Nicotine dependence, unspecified, uncomplicated; Z91.14 Patient's other noncompliance with medication regimen; Z59.0 Homelessness
CPT/HCPCS: 36415; 71045; 80053; 80061; 82607; 84439; 84443; 84703; 85025; 93005